=== PATIENT | female | born 1985 | race Caucasian/White ===

== ENCOUNTER 2017-05-17 15:21 | Emergency (ER) | payer MEDICAID ==
[~2017-05-17] VITALS: Ht 160 cm; Wt 99.8 kg
[2017-05-17 15:36] VITALS: Ht 160 cm; Wt 99.8 kg
[2017-05-17 18:20] VITALS: BP 118/64
== END 2017-05-17 18:05 | disposition home or self-care (01) ==
LOC: ED 15:21
DX: R51 Headache (principal)
CPT/HCPCS: J1200; J2765

== ENCOUNTER 2018-06-20 15:27 | Emergency (ER) | payer MEDICAID ==
[2018-06-20 15:50] VITALS: Ht 160 cm
[2018-06-20 16:47] LABS: BASOPHIL % 0.2 % (0-2); PLATELET COUNT 317 x10^3mcL (130-400); RED CELL DISTRIBUTION WIDTH 14.5 % (11.5-14.5)
[2018-06-20 16:56] LABS: CARBON DIOXIDE 22.5 mmol/L (21-32); CHLORIDE SERUM 103 mmol/L (98-107); CREATININE SERUM 0.5 mg/dL (0.6-1.0); GFR1 > 60 mL/min; GLUCOSE SERUM 96 mg/dL (74-106); POTASSIUM SERUM 3.6 mmol/L (3.5-5.1); SODIUM SERUM 136 mmol/L (136-145)
[2018-06-20 17:00] LABS: ALKALINE PHOSPHATASE 161 U/L (46-116); ALT/SGPT 38 U/L (14-59); AMYLASE 38 U/L (25-115); AST/SGOT 41 U/L (15-37); BILIRUBIN TOTAL 0.21 mg/dL (0.20-1.00); LIPASE 151 IU/L (73-393); TOTAL PROTEIN, SERUM 7.7 g/dL (6.4-8.2)
[2018-06-20 17:11] LABS: ALBUMIN 2.5 g/dL (3.4-5.0)
[2018-06-20 20:21] VITALS: BP 138/74
== END 2018-06-20 20:21 | disposition home or self-care (01) ==
LOC: ED 15:27
PROVIDERS: Emergency Medicine
DX: O26.893 Other specified pregnancy related conditions, third trimester (principal); R10.30 Lower abdominal pain, unspecified; R14.0 Abdominal distension (gaseous); Z3A.33 33 weeks gestation of pregnancy
CPT/HCPCS: 36415